=== PATIENT | male | born 1975 | race American Indian/Alaskan Native ===

== ENCOUNTER 2021-12-22 08:21 | Emergency (ER) | payer SELFPAY ==
[2021-12-22] MEDS ORDERED: cloNIDine 0.2 MG TAB PO ONE (09:15)
[2021-12-22] MEDS ORDERED: SODIUM CHLORIDE 0.9% 1000 ML 1,000 ML IV ONE (09:15)
--- NOTE | 2021-12-22 09:19 | Emergency Department Report ---
HPI - General Chief Complaint: High BP Time Seen by Provider: 12/22/21 09:09 - [facility] HPI: Room 18 The patient is a 46-year-old male present with chief complaint of hypertension. Patient states today he developed tingling to some of the digits of his right hand and felt as though his blood pressure was elevated. Patient checked his blood pressure and got a systolic in the 200s prompting him to come to the emergency department. Patient denies having any other symptoms. Patient denies having chest pain, headache, nausea/vomiting or shortness of breath. The patient states he is normally compliant with a low-sodium diet but recently has not been ED Past Medical Hx - Past Medical History Previous Medical History?: Yes Hx Hypertension: Yes Hx Diabetes: Yes - Surgical History Past Surgical History?: Yes Additional Surgical History: Back cyst removal - Family History Family history: no significant - Social History Smoking Status: Never Smoker Substance Use Type: None (Denies illicit drug use), Alcohol (Occasional) ED Review of Systems ROS: Stated complaint: HIGH BLOOD PRESSURE/SUGAR /NUMB RT HAND Other details as noted in HPI Constitutional: denies: fever Eyes: denies: eye pain ENT: denies: throat pain Respiratory: denies: shortness of breath Cardiovascular: denies: chest pain Endocrine: no symptoms reported Gastrointestinal: denies: nausea, vomiting Genitourinary: denies: dysuria Musculoskeletal: denies: back pain Neurological: paresthesias. denies: headache Physical Exam - Physical Exam Vital Signs: Vital Signs 12/22/21 09:00 Temperature 98.6 F Pulse Rate 110 H Respiratory 20 Rate Blood Pressure 205/122 O2 Sat by Pulse 97 Oximetry Vital Signs 12/22/21 12/22/21 12/22/21 09:00 09:38 09:46 Temperature 98.6 F Pulse Rate 110 H 107 H Respiratory 20 Rate Blood Pressure 205/122 Blood Pressure [Left] O2 Sat by Pulse 97 99 Oximetry 12/22/21 12/22/21 09:56 10:58 Temperature Pulse Rate 108 H 107 H Respiratory 20 Rate Blood Pressure 172/112 Blood Pressure 146/101 [Left] O2 Sat by Pulse 99 Oximetry Physical Exam: GENERAL: The patient is well-developed well-nourished male sitting on stretcher not appearing to be in acute distress. [] HEENT: Normocephalic. Atraumatic. Extraocular motions are intact. Patient has moist mucous membranes. NECK: Supple. No meningitic signs are noted. Trachea midline CHEST/LUNGS: Clear to auscultation. There is no respiratory distress noted. HEART/CARDIOVASCULAR: Regular. There is no tachycardia. There is no gallop rub or murmur. ABDOMEN: Abdomen is soft, nontender. Patient has normal bowel sounds. There is no abdominal distention. SKIN: There is no rash. There is no edema. There is no diaphoresis. NEURO: The patient is awake, alert, and oriented. The patient is cooperative. The patient has no focal neurologic deficits. The patient has normal speech. Cranial nerves II through XII grossly intact. GCS 15 MUSCULOSKELETAL: There is no evidence of acute injury. ED Course Vital Signs 12/22/21 09:00 Temperature 98.6 F Pulse Rate 110 H Respiratory 20 Rate Blood Pressure 205/122 O2 Sat by Pulse 97 Oximetry ED Medical Decision Making - Lab Data Result diagrams: 12/22/21 09:49 Laboratory Tests 12/22/21 12/22/21 12/22/21 08:57 09:49 09:49 VBG pH 7.326 Sodium 132 L Potassium 4.0 Chloride 93.0 L Carbon Dioxide 25 Anion Gap 18 BUN 12 Creatinine 1.1 Estimated GFR > 60 BUN/Creatinine Ratio 11 Glucose 291 H POC Glucose 281 H Calcium 9.9 Total Creatine Kinase 228 H CK-MB (CK-2) 1.6 CK-MB (CK-2) Rel Index 0.7 - EKG Data -: EKG Interpreted by Nc EKG shows normal: sinus rhythm Rate: tachycardia (107 bpm) - EKG Data When compared to previous EKG there are: previous EKG unavailable Interpretation: other (No ischemic changes seen) - Radiology Data Radiology results: report reviewed (CT head), image reviewed (CT head) [facility] [address] [place] [address] Cat Scan Report Signed Patient: WILLOW CARRILLO MR#: [id number] : 1975 Acct:[id number] Age/Sex: 46 / M ADM Date: 12/22/21 Loc: ED Attending Dr: Ordering Physician: PRICE STANLEY MD Date of Service: 12/22/21 Procedure(s): CT head/brain wo con Accession Number(s): [id number] cc: PRICE STANLEY MD CT HEAD WITHOUT CONTRAST INDICATION / CLINICAL INFORMATION: Hypertension, paresthesia to fingers of right hand. TECHNIQUE: All CT scans at this location are performed using CT dose reduction for ALARA by means of automated exposure control. COMPARISON: None available. FINDINGS: HEMORRHAGE: None. ACUTE INFARCTION: No Significant Abnormality MASS/MASS EFFECT: No Significant Abnormality CEREBRAL PARENCHYMA: No acute focal attenuation abnormality. VENTRICULAR SYSTEM: Normal in size and morphology for the patient's age. ORBITS: Normal as visualized. SKULL: No significant abnormality. PARANASAL SINUSES / MASTOID AIR CELLS: Mucosal retention cyst within the left maxillary sinus. Otherwise, unremarkable. ADDITIONAL FINDINGS: None. IMPRESSION: 1. No acute intracranial abnormality. Signer Name: Colt Jackson MD Signed: 12/22/2021 10:28 AM Workstation Name: [id number] Transcribed By: SB Dictated By: COLT JACKSON MD Electronically Authenticated By: COLT JACKSON MD Signed Date/Time: 12/22/21 1028 DD/ 1026 - Differential Diagnosis Hypertensive urgency, hypertensive emergency, uncontrolled hypertension, DK Critical care attestation.: If time is entered above; I have spent that time in minutes in the direct care of this critically ill patient, excluding procedure time. ED Disposition Clinical Impression: Hypertensive urgency Disposition: 01 HOME / SELF CARE / HOMELESS Is pt being admited?: No Does the pt Need Aspirin: No Condition: Stable Instructions: Hypertension, Adult, [id number], Managing Your Hypertension Additional Instructions: Return to the emergency department should you develop worsening symptoms, inability to tolerate food or liquids, high fever or any other concerns Referrals: [facility] [Provider Group] - JAIME (Please follow-up with the [facility] to be established as a patient for further management of your hypertension) Time of Disposition: 11:07
--- NOTE | 2021-12-22 10:32 | Cat Scan Report ---
CT HEAD WITHOUT CONTRAST INDICATION / CLINICAL INFORMATION: Hypertension, paresthesia to fingers of right hand. TECHNIQUE: All CT scans at this location are performed using CT dose reduction for ALARA by means of automated exposure control. COMPARISON: None available. FINDINGS: HEMORRHAGE: None. ACUTE INFARCTION: No Significant Abnormality MASS/MASS EFFECT: No Significant Abnormality CEREBRAL PARENCHYMA: No acute focal attenuation abnormality. VENTRICULAR SYSTEM: Normal in size and morphology for the patient's age. ORBITS: Normal as visualized. SKULL: No significant abnormality. PARANASAL SINUSES / MASTOID AIR CELLS: Mucosal retention cyst within the left maxillary sinus. Otherw ise, unremarkable. ADDITIONAL FINDINGS: None. IMPRESSION: 1. No acute intracranial abnormality. Signer Name: Colt Oquendo MD Signed: 12/22/2021 10:28 AM Workstation Name: [id number]
[2021-12-22 10:44] LABS: Creatine Kinase MB 1.6 ng/mL (0.0-4.0)
[2021-12-22 10:45] LABS: BUN/Creatinine Ratio 11; Blood Urea Nitrogen 12 mg/dL (9-20); Calcium 9.9 mg/dL (8.4-10.2); Hemolysis Index 21
[2021-12-22 11:24] VITALS: BP 147/98
--- NOTE | 2021-12-23 10:44 | Electrocardiograph Report ---
[facility] Test Date: 2021-12-22 Test Time: 09:34:45 Pat Name: WILLOW CARRILLO Department: Room: Gender: M [employer]: [id number] : 1975 Requested By: PRICE STANLEY Order Number: [id number] Reading MD: Sarai Camilo Measurements Intervals [place] Rate: 107 P: 59 NH: 174 QRS: 45 QRSD: 82 T: 37 QT: 327 QTc: 437 Interpretive Statements Sinus tachycardia No previous ECG available for comparison Electronically Signed On 12-23-2021 10:43:51 EDT by Sarai Camilo
== END 2021-12-22 11:24 | disposition home or self-care (01) ==
LOC: ED 08:21
DX: I16.0 Hypertensive urgency (principal); E11.9 Type 2 diabetes mellitus without complications
CPT/HCPCS: 36415; 70450; 80048; 82550; 82553; 82805; 82962; 93005; 96360; 99284; J7030